=== PATIENT | female | born 1955 | race Caucasian/White ===

== ENCOUNTER 2023-09-20 13:14 | Day surgery (SDC) | payer MEDICARE, SELFPAY ==
--- NOTE | 2023-09-20 13:20 | US_ITS ---
[address] [address] Patient Name: ELVIS SOTO MRN: [id number] date: 1955 Sex: F Assigned Patient Location: US Current Patient Location: US Accession/Order Number: [id number] Exam Date: 09/20/2023 13:21 Report Date: 09/20/2023 15:00 At the request of: KAL CACERES Procedure: US biopsy thyroid EXAMINATION: US biopsy thyroid HISTORY: Thyroid Nodule COMPARISON: Ultrasound thyroid prior examinations TECHNIQUE: After obtaining informed consent, ultrasound-guided fine needle aspiration was performed in the usual sterile manner. FINDINGS: IMAGING: Ultrasound. BIOPSY NEEDLE: 25-gauge; 3 separate passes LOCATION: Left lobe thin-walled predominantly cystic, heterogeneous mass. SPECIMEN TYPE: Cellular tissue. LOCAL ANESTHETIC: Buffered Xylocaine. COMPLICATIONS: None. LABORATORY: Prepared slide smears and washings for cell block evaluation. OTHER: Negative. PATHOLOGY: Pending. An addendum will be added when results are available. US/US biopsy thyroid IMPRESSION: 1. Uneventful ultrasound guided fine needle aspiration (FNA). 2. Pathology results are pending. Electronically authenticated by: JILLIAN LARSON Date: 09/20/2023 15:00
[2023-09-20 13:30] VITALS: BP 121/72; PULSE 89; O2SAT 100
[2023-09-20] MEDS: LIDOCAINE HCL 10 ML, SODIUM BICARBONATE 1 MEQ INJ (14:05)
--- NOTE | 2023-09-20 14:56 | SUR.PREOP ---
09/15/ Instructed pt on procedure, date, time, and prep.
== END 2023-09-20 14:25 | disposition home or self-care (01) ==
LOC: US 13:14
PROVIDERS: Radiology Diagnostic Radiology; Visit Provider Otolaryngology
DX: E04.1 Nontoxic single thyroid nodule (principal)
CPT/HCPCS: 10005; 88173